=== PATIENT | female | born 1950 | race Caucasian/White ===

== ENCOUNTER 2016-07-22 08:30 | Inpatient (IN) | payer OTHER, MEDICARE ==
[~2016-07-22] VITALS: Ht 167.6 cm; Wt 84.0 kg
--- NOTE | ~2016-07-22 | CATH ---
Cardiac Diagnostic + PCI Report Demographics Patient Name MIGUEL Moctezuma Gender Female Date of 1950 Age 66 year(s) Patient Number [id number] Date of Study 07/22/2016 Visit Number [id number] Room Number 422 Corporate ID Ht 167.64 cm Wt 83.91 kg Accession Number [id number] BSA 1.93 m kg/m Referring Jim Vergara MD Primary Physician Physician Cindi Zamora MD Performing Alverto Arias Secondary Physician Physician MD Jim Vergara MD Diagnostic Jim Vergara MD Assisting Physician Physician Interventional jose antonio Arias Physician Exhibit Designer Physician Findings and Conclusions Diagnostic Findings and Conclusion Single vessel CAD 100% mid circumflex obstruction with JULIETA 0 flow. Diagnostic Recommendations Immediate PCI of the mid circumflex lesion. Interventional Findings and Conclusion Successful PCI of 100% mid circ with a 3.0 x 28mm Synergy stent to 0% residual and judaism of JULIETA III flow. The proximal portion of the stent was post-dilated with a 3.25mm NC balloon. Interventional Recommendations Dual anti-platelet therapy and aggressive risk factor modification. Procedure Description The patient was brought to the diagnostic cardiac catheterization laboratory by cathead operator personal. Physician deemed procedure as EMERGENT and verbal consent was obtained by Dr. Fernandez. The planned puncture-incision site(s) were clipped and prepped with ChloraPrep and draped in the usual sterile manner. Conscious sedation, supplemental oxygen, and pain control medications were delivered by a registered nurse under physician guidance. Surface ECG rhythm, blood pressure measurement, and pulse oximetry were monitored throughout the procedure. Arterial access. The right radial access site was infiltrated with lidocaine. The vessel was entered with the Seldinger technique. A 6F sheath was advanced into the vessel and used for catheter placement. Left heart catheterization. A JL3.5 catheter was advanced across the aortic valve to the left ventricle under fluoroscopic guidance. Resting hemodynamics were obtained. Post-ventriculography LV pressure was obtained. The catheter was gradually withdrawn into the aorta with continuous pressure recording. Selective left coronary angiography. An FL3.5 catheter was advanced into the left coronary vessel ostium under Fluoroscopic guidance. Contrast was injected by hand. Images were obtained in multiple projections. Selective right coronary angiography. A JR4 catheter was advanced into the right coronary vessel ostium under fluoroscopic guidance.. Angioplasty and Stent Placement: An EBU 3.5 guiding catheter was used to intubate the vessel. A 0.14 Prowater wire was then used to cross the lesion. A 2.5 x 12 Trek balloon catheter was placed across the lesion and inflated. The balloon catheter was then removed. A 3.0 x 28 Synergy Drug Eluting Stent was placed and inflated. The stent balloon catheter was removed. A 3.5 x 15 NC Emerge balloon catheter was placed across the lesion and inflated. The balloon catheter was then removed. Post placement angiograms were performed. Hemostasis: The sheath was removed and a TR Band was placed. Hemostasis was achieved. The patient was transferred to the ICU nursing floor via cart accompanied by a nurse. The patient left the laboratory in stable condition. Procedure Procedure Type Diagnostic procedure:Angiography:, Coronary Angios w/[facility] PCI procedure:Drug Eluting Coronary Stent:, CFX Indications: Chest pain, Elevated troponin, Abnormal ECG and Acute coronary syndrome. The procedure was explained in detail to the patient. Risks, complications and alternative treatments were reviewed. Written consent was obtained. Medications Reviewed with Patient prior to Procedure. Complications: No Complication. Angiographic Findings Dominance: Right Cardiac Arteries and Lesion Findings LMCA: Normal (0% Stenosis). LAD: Abnormal. Lesion on Prox LAD: 30% stenosis .Chronic total occlusion. Lesion on Mid LAD: 30% stenosis . LCx: Abnormal. Lesion on Mid CX: 100% stenosis 28 mm length reduced to 0%. Pre procedure JULIETA 0 flow was noted. Post Procedure JULIETA III flow was present. The guidewire cross was successful.The lesion was diagnosed as a high risk lesion.Culprit lesion. Devices used - PROWATER WIRE 0.014" X 180CM. Number of passes: 1. - CATH BLN RX TREK 2.5X12MM. Diameter: 2.5 mm. Length: 12 mm. 2 inflation(s) to a max pressure of: 10 dedra. - CATH STENT SYNERGY 3.0 X 28. 1 inflation(s) to a max pressure of: 14 dedra. - CATH BAL RX NC EMERGE 3.25X15. 2 inflation(s) to a max pressure of: 16 dedra. RCA: Normal (0% Stenosis). Coronary Tree Procedure Data Procedure Date Date: 07/22/2016Start: 09:29 AMEnd: 10:49 AM Entry Locations - Percutaneous access was performed through the Right Radial artery (Primary location). A 6 Fr sheath was inserted. Hemostasis was successfully obtained using a TR band. Procedure Medications Order and Administration + + +--------+---------+ !Time !Medication !Dosage !Route ! + + +--------+---------+ !07/22/2016 !SF Radial Cocktail: 200mcg Nitro, 2.5 ! ! ! !09:31 AM !mg Verapamil, 5000u Heparin ! ! ! + + +--------+---------+ !07/22/2016 !Angiomax (Bivalirudin) (ACC_5) !15 ml !I.V. ! !10:09 AM ! ! !bolus ! + + +--------+---------+ !07/22/2016 !Angiomax (Bivalirudin) (ACC_5) !30 ml/hr!I.V. drip! !10:11 AM ! ! ! ! + + +--------+---------+ !07/22/2016 !Kusum (Ticagrelor) (ACC_20) !180 mg !P.O. ! !10:15 AM ! ! ! ! + + +--------+---------+ !07/22/2016 !Versed !1 mg !I.V. ! !10:26 AM ! ! ! ! + + +--------+---------+ !07/22/2016 !Fentanyl !25 mcg !I.V. ! !10:26 AM ! ! ! ! + + +--------+---------+ !07/22/2016 !Sodium Chloride !10 ml !I.V. ! !10:26 AM ! ! ! ! + + +--------+---------+ !07/22/2016 !Oxygen !4 l/min !NC ! !10:35 AM ! ! ! ! + + +--------+---------+ !07/22/2016 !Versed !1 mg !I.V. ! !10:37 AM ! ! ! ! + + +--------+---------+ !07/22/2016 !Fentanyl !25 mcg !I.V. ! !10:37 AM ! ! ! ! + + +--------+---------+ Devices Used - A6 FrCATH 6FR FL3.5 CATHETER 100CMwas used for:LeftsideCoronary Angios. - A6 FrCATH 6F FR4 CATHETER 100CMwas used for:RightsideCoronary Angios. - A6 FrGUIDE CATHETER 6FR EBU 3.5 100CMwas used for:LeftsideCircumflex Intervention. Contrast Material - Isovue 00328 ml - Isovue 81073 ml Fluoroscopy Time: Diagnostic: 12:54 minutes. Total: 12:54 minutes. Fluoroscopy Dose: Diagnostic: 984 mGy. Total: 984 mGy. Estimated Blood Loss: 12 ml. Medical History Allergies - No known allergies. Risk Factors The patient risk factors include:uncontrolled hypertension, last creatinine: 0.7 mg/dl and creatinine clearance: 106.14 ml/min. Admission Data Admission Date: 07/22/2016 Admission Time: 10:50 AM Clinical Evaluation Leading to Procedure Diagnosed on 07/22/2016 09:00 AM. - The patient's CAD presentation was assessed as: Non-STEMI. - Anti-anginal medications were prescribed during the past two weeks. The medication is: Beta Blockers. Hemodynamics Condition: Rest O2 Consumption: Estimated: 182.54Heart Rate: 73 bpm Pressures (mmHg) +-----+ + !Site !Pressure ! +-----+ + !LV !135/7 ,22 ! +-----+ + !AO !143/73 (106) ! +-----+ + !LV !137/8 ,23 ! +-----+ + !AO !134/77 (103) ! +-----+ + !AO !/ (0) ! +-----+ + Valve Gradients and Areas + +---------+---------+---------+ +---------+ + !Valve !Peak !Mean !Area !Index !Flow !Source ! + +---------+---------+---------+ +---------+ + !Aortic !0 !0 ! ! ! ! ! + +---------+---------+---------+ +---------+ + !Aortic !0 !0 ! ! ! ! ! + +---------+---------+---------+ +---------+ + Shunts Oxygen Values O2 Capacity 208.08 O2 Consumption 182.54 Discharge Data Discharge Date: 07/24/2016 Hospital Status: Inpatient Signatures
--- NOTE | ~2016-07-22 | ECH ---
Transthoracic Echocardiography Report (TTE) Demographics Patient Name CRISTIAN RIVERA Date of Study 07/22/2016 Patient Number [id number] Visit Number [id number] Date of 1950 Room Number 306 Accession Number [id number] Gender Female Age 66 year(s) Referring Ady Burtonsie [facility] Assistant Banquet Manager Jocelyn White [facility] Physician Physician Luci Adrian MD Case Liner Physician Justo Supervising Ordering Physician Jim Vergara MD, MD/P Nurse Stress Jewelry Mold Maker Conclusions Contractility Score Summary At rest the following contractility abnormalities were noted: Hypokinesis of the Mid mary-lateral, the Mid infero-lateral, the Basal infero-lateral, the Apical inferior, the Apical lateral, the Basal mary-lateral and the Apical cap segments. Contractility of all other segments appeared normal. Summary Technically adequate exam. The estimated left ventricular ejection fraction is 55-60%. Segmental wall motion abnormalities noted. Mild left ventricular hypertrophy. Diastolic assessment reveals Grade I diastolic dysfunction. Mild mitral regurgitation by color Doppler. Mild tricuspid regurgitation by color Doppler. Recommendation The patient will be given the results of this study by the physician who ordered the exam. Procedure Type of Study TTE procedure:Echo Complete SF. Procedure Date Date: 07/22/2016 Start: 03:21 PM Technical Quality: Good visualization Indications:Chest pain. Appropriate Use Criteria: 9 Height: 66 inches Weight: 185 pounds BSA: 1.93 m Rhythm: Within normal limits HR: 58 bpm BP: 134/71 mmHg Allergies - No known allergies. M-Mode/2D Measurements LV Diastolic Dimension: 4.47 cm LV Systolic Dimension: 3.22 cm LV Septum Diastolic: 1 cm LV PW Diastolic: 1.13 cm AO Root Dimension: 2.53 cm Cardiac Output: 2.55 l/min LA Dimension: 3.13 cm Cardiac Index: 1.32 l/min*m LA volume index: 23 ml/m LVOT: 1.82 cm RV Base: 3.3 cm LVOT VTI: 16.91 cm RV Mid: 2.3 cm LV Stroke volume: 43.97 ml RV Length: 5.4 cm LV Stroke volume index: 22.78 ml/m Doppler Measurements AV Peak Velocity: 1.12 m/s MV Peak E-Wave: 0.59 m/s AV Peak Gradient: 5.02 mmHg MV Peak A-Wave: 0.73 m/s AV Mean Gradient: 2.77 mmHg MV E/A Ratio: 0.81 LVOT Peak Velocity: 0.85 m/s MV P1/2t: 62.5 msec AV Area (Continuity):1.85 cm MV Deceleration Time: 182.3 msec TR Velocity:2.49 m/s MV Area (PHT): 3.52 cm TR Gradient:24.87 mmHg PV Peak Velocity: 0.83 m/s Estimated RAP:5 mmHg PV Peak Gradient: 2.72 mmHg Estimated RVSP: 30 mmHg Estimated PASP: 29.87 mmHg RA Area: 10.32 cm Findings Left Ventricle The left ventricle is normal in size . Mild left ventricular hypertrophy. Diastolic assessment reveals Grade I diastolic dysfunction. Right Ventricle Normal right ventricle structure and function. Left Atrium Normal left atrial size. Right Atrium Normal right atrial size. Mitral Valve Normal mitral valve structure and function. Mild mitral regurgitation by color Doppler. Aortic Valve Normal aortic valve structure and function. Tricuspid Valve Normal tricuspid valve structure and function. Mild tricuspid regurgitation by color Doppler. Pulmonic Valve Normal pulmonic valve structure and function. Pericardial Effusion No evidence of pericardial effusion. Miscellaneous Visualized portions of the aortic root and ascending aorta appear normal in size. Pleural Effusion No evidence of pleural effusion. Contractility Score LV regional wall motion:(0-Non visualized 1-Normal 2-Hypokinesis 3-Akinesis 4-Dyskinesis 5-Aneurysm) Signature
--- NOTE | 2016-07-24 10:17 | HP ---
ADMIT: 07/22/2016 RM/LOC: [facility] MR#: [id number] [address] [address] CRISTIAN RIVERA [address] [place] [address] History and Physical SEX: F AGE: 66 : 1950 DATE OF SERVICE: 07/22/2016 REASON FOR CONSULTATION: Chest pain, EKG changes. HISTORY OF PRESENT ILLNESS: The patient is a pleasant 66-year-old female with no known history of coronary artery disease. She does have a family history of coronary artery disease. Her dad had his first heart event at age 63. She does have hypertension although she states this is borderline and she has never taken any medications for it. She does not take any regular medications at home and does not have any known allergies. She has been having chest discomfort like an elephant sitting on her chest, sometimes radiates into her right shoulder and up into her right neck since about 11:00 last night. This was a sudden onset. She has never had anything like this before. It did cause her nausea and vomiting. She also had some diarrhea and diaphoresis with it. She called her primary care this morning and was sent to the emergency room. Her EKG did show some changes and her pain continued despite 3 nitroglycerin. She was also hypertensive in the ER with systolic blood pressure in the 180s. In the ER, she was given aspirin, heparin, nitroglycerin, and beta blockers. Because of her EKG changes and her ongoing discomfort, it was decided to take her to the supervisor cytogenetic laboratory. PAST MEDICAL HISTORY: Positive for borderline hypertension. FAMILY HISTORY: Positive for coronary artery disease in the dad who is 63. Her mom is alive in her 90s, but does have a permanent pacemaker. SOCIAL HISTORY: She does not smoke. She is . She has 2 children. 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 MEDICATIONS: None. ALLERGIES: NONE. REVIEW OF SYSTEMS: A 10-point review of systems was reviewed and negative except for per HPI. PHYSICAL EXAMINATION: Per Dr. Fernandez: VITAL SIGNS: Blood pressure 174/88, pulse of 87, respiratory rate of 18, O2 saturation 97%, and temp of 99.5. SKIN: [place], warm and dry. EYES: Sclerae clear. No xanthelasmas. ENT: Oral mucosa is pink and moist. No jugular venous distention or carotid bruits. CHEST: Respirations are even and unlabored. Lungs are clear to auscultation. HEART: Regular rate and rhythm. Normal S1, S2. No murmurs, rubs or gallops. ABDOMEN: Soft and nontender. MUSCULOSKELETAL: Gait is normal. EXTREMITIES: Peripheral pulses palpable. No clubbing, cyanosis or edema. PSYCHIATRIC: Alert and oriented. Mood and affect are appropriate. ADMIT: 07/22/2016 RM/LOC: [facility] MR#: [id number] [address] [place] [address] CRISTIAN RIVERA [address] [place] [address] History and Physical SEX: F AGE: 66 : 1950 DIAGNOSTIC DATA: EKG shows nonspecific ST-T wave changes. Verbal report of troponin is 4. Sodium 138, potassium 3.6, chloride 105, carbon dioxide 23, BUN of 10, glucose 149, creatinine 0.7, and magnesium of 2.1. Cholesterol is pending. CK and MB are pending. White blood count 10.8, red blood count 4.73, hemoglobin of 15.3, hematocrit 45.0 with a platelet count of 278. ASSESSMENT: Per Dr. Fernandez. 1. ACS. 2. Abnormal EKG. 3. Untreated hypertension. PLAN: Per Dr. Fernandez. Mrs. Rivera's ST changes and chest pain, she does have resolution of the symptoms with nitroglycerin. Because of this, we will proceed with diagnostic left heart catheterization. Risks and benefits such as but not limited to, pain, infection, bleeding, neurovascular damage, kidney damage, AL, stroke, and rarely were explained to the patient and she is willing to proceed. She was given aspirin, nitroglycerin, heparin, and beta- tania in the emergency room. Further recommendations will be based on the results of her heart catheterization. Thank you for allowing us to participate in the care of this patient. LOPEZ Sánchez / [place]. Jai Fernandez MD / parminder JOB #: [id number] CC: Sagar Fernandez, Attending Physician Preet Puente, Family Physician
--- NOTE | 2016-07-25 12:11 | ER ---
ADMIT: 07/22/2016 RM/LOC: ER [facility] MR#: [id number] [address] [address] CRISTIAN RIVERA [address] [place] [address] Emergency Room Report SEX: F AGE: 66 : 1950 DATE: 07/22/2016 This 66-year-old female, who had onset of chest pressure "an elephant sitting on my chest" began 11:30 last night. Comes to the Emergency Department this morning. She apparently went to her primary doctor when instructed to come to the ER. The pain has been steady throughout the night and is still present at 8/10. Described it as an "elephant sitting on my chest." She had some nausea and vomiting associated with it and some diaphoresis. PAST MEDICAL HISTORY: Significant for untreated hypertension. Family history significant for CVAs and TIAs in the father in age 60s. Does not smoke. Does not drink. PHYSICAL EXAMINATION: GENERAL: Reveals a 66-year-old female, mildly anxious complaining of pressure in her chest radiating down the right arm. LUNGS: Clear to auscultation. CARDIOVASCULAR: Regular rate and rhythm with no murmurs. ABDOMEN: Soft. Hyperactive bowel tones. EXTREMITIES: Without clubbing, cyanosis, or edema. EKG shows minimal ST changes in the inferior leads. However, because of her history of the present illness, Cardiology was consulted. She is given nitroglycerin in the Emergency Department. Prepped for cathode maker. Troponin then arrived after Cardiology had already seen the patient. In the ER, initial troponin was 4.84. The patient was taken to the cathode maker. DIAGNOSIS: Non ST-elevation myocardial infarction. Jasper Mora MD/ parminder JOB #: [id number] CC: Jasper Mora MD, Attending Physician Preet Puente MD, Family Physician
[2016-07-26] MEDS ORDERED: LOPRESSOR50 MG PO (11:16)
[2016-07-26] MEDS ORDERED: LIPITOR40 MG PO (11:16)
[2016-07-26] MEDS ORDERED: BRILINTA90 MG PO (11:16)
[2016-07-26] MEDS ORDERED: ASA CHILDREN'S81 MG PO (11:16)
[2016-07-26] MEDS ORDERED: ZESTRIL DPS5 MG PO (11:17)
[2016-07-26] MEDS ORDERED: NITROSTAT0.4 MG SL (11:17)
--- NOTE | 2016-08-21 10:36 | DS ---
ADMIT: 07/22/2016 RM/LOC: [address] [facility] MR#: [id number] [address] [address] CRISTIAN RIVERA [address] [place] [id number] General Discharge Summary SEX: F AGE: 66 : 1950 ADMISSION DATE: 07/22/2016 DISCHARGE DATE: 07/24/2016 FINAL DIAGNOSES: 1. Acute coronary syndrome. 2. Ytc-NV-aivvfzzox myocardial infarction. 3. Abnormal EKG. 4. Untreated hypertension. 5. Coronary artery disease, status post stent to her left circumflex. 6. Family history of coronary artery disease. CONSULTATIONS: None. PROCEDURES: Chest x-ray done on 07/22/2016 showed new acute cardiopulmonary process. Echocardiogram on 07/22/2016 showed an EF of 55%-60% with hypokinesis of the mid-anterolateral and mid-inferolateral, basal inferolateral and apical lateral and basal anterolateral apical segments. Mild mitral regurgitation. Mild tricuspid regurgitation with mild left ventricular hypertrophy. DIAGNOSTIC: Left heart catheterization performed by Dr. Pat Fernandez showed 100% mid circumflex which was stented by Dr. Stevie Del Toro with a 3.0 x 28 mm Synergy stent with 0% residual and baptism of JULIETA-3 flow. The proximal portion of the stent was post dilated, 3.25 mm noncompliant balloon. HOSPITAL COURSE: The patient admitted through the ER after complaining of chest discomfort. This was started about 11 o'clock that night. She had no known history of coronary artery disease and her only risk factors were untreated hypertension along with family history of coronary artery disease. She did have some nonspecific ST-T wave changes in the emergency room. We could not relieve her discomfort with medications including nitroglycerin and therefore we took her to the asset availability leader. She did receive heparin and beta tania in the asset availability leader. Her troponin came back elevated at 4. In the heart catheterization, she was found to have 100% circumflex which did receive a 3.0 x 28 mm Synergy stent with 0% residual and baptism of JULIETA-3 flow. Her echocardiogram showed preserved EF with wall motion abnormalities. She did not have any immediate complications post heart catheterization. On 07/23/2016, she was transferred to telemetry status. She had not had any recurrent chest discomfort. On 07/24/2016, she again continued to be chest pain free. She was on appropriate medications and felt stable for discharge. Her cath site was soft and nontender. MEDICATION: She was sent home on include: ADMIT: 07/22/2016 RM/LOC: [address] [facility] MR#: [id number] [address] [address] CRISTIAN RIVERA [address] [place] [address] General Discharge Summary SEX: F AGE: 66 : 1950 1. Aspirin 81 mg p.o. daily. 2. Brilinta 90 mg p.o. b.i.d. 3. Lipitor 40 mg p.o. daily. 4. Lopressor 25 mg p.o. b.i.d. 5. Zestril 5 mg p.o. daily. VITAL SIGNS: At discharge; blood pressure 126/58, pulse of 68, respirations of 16, temp of 98.2. DISCHARGE DISPOSITION: To home. DISCHARGE CONDITION: Stable. She was scheduled for followup in 1 week. LOPEZ Sánchez / Pat Fernandez MD / modl JOB #: [id number] CC: Pat Fernandez MD, Attending Physician Preet Puente MD, Family Physician
== END 2016-07-24 11:47 | disposition home or self-care (01) | DRG 247 ==
LOC: ER 08:30 → SSS 09:15 → 3ICU 10:50 → 4PCU 07-23 14:51
PROVIDERS: ADMIT Internal Medicine
PROC: 027034Z Dilation of Coronary Artery, One Artery with Drug-eluting Intraluminal Device, Percutaneous Approach (ICD-10-PCS; principal; 2016-07-22)
PROC: B2111ZZ Fluoroscopy of Multiple Coronary Arteries using Low Osmolar Contrast (ICD-10-PCS; principal; 2016-07-22)
PROC: 4A023N7 Measurement of Cardiac Sampling and Pressure, Left Heart, Percutaneous Approach (ICD-10-PCS; principal; 2016-07-22)
DX: I21.4 Non-ST elevation (NSTEMI) myocardial infarction (principal); I10 Essential (primary) hypertension; I25.10 Atherosclerotic heart disease of native coronary artery without angina pectoris; Z82.49 Family history of ischemic heart disease and other diseases of the circulatory system